=== PATIENT | female | born 1995 ===

== ENCOUNTER 2017-01-19 16:31 | Emergency (ER) | payer MEDICAID ==
--- NOTE | ~2017-01-19 | ER ---
PATIENT'S NAME: NANDINI BERNALERA [facility] AGE: 21 Y [address] ROOM: [place] [id number] LOCATION: [facility] ADMIT DATE: 01/19/2017 ER/Outpatient Report DISCHARGE DATE: 01/19/2017 FAMILY PHYSICIAN: Jareth Real MD ATTENDING PHYSICIAN: Carlos Manuel Sandra Time of Arrival: 1631 hours. Time of Evaluation: 1645 hours. CHIEF COMPLAINT: Migraine headache. HISTORY OF PRESENT ILLNESS: This is a 21-year-old female, who presents to the ER. She states she has been having a migraine for the past couple of hours. She states she does have a history of migraines. It is similar to her previous headaches and is located on the left side of her head. It makes her feel photophobic. She has had nausea and vomiting and just feels neck discomfort because of it. She has had no recent illness. No fever or chills. She did take some ibuprofen prior to arrival with no relief of her symptoms. ALLERGIES: PLEASE SEE MEDICATION LIST IN NURSE'S NOTES. MEDICATIONS: Please see medication list in nurse's notes. PAST MEDICAL HISTORY: Asthma, migraines, allergies. PAST SURGICAL HISTORY: None. SOCIAL HISTORY: Denies smoking, drug, or alcohol use. REVIEW OF SYSTEMS: A 10-point review of systems was completed and was negative with the exception of those discussed in the HPI. PHYSICAL EXAMINATION: VITAL SIGNS: Weight 59 kg taken, blood pressure is 112/67, pulse 82, respirations 20, saturations 98% on room air. Ryan Coma Score is 15. GENERAL: An alert, calm, well-developed female, in [id number]-rc-stptopsy distress. She is in a dark room with a towel over her face. [facility] 21 Y [address] ROOM: [place], [place] [id number] LOCATION: [facility] ADMIT DATE: 01/19/2017 ER/Outpatient Report DISCHARGE DATE: 01/19/2017 FAMILY PHYSICIAN: Jareth Real MD ATTENDING PHYSICIAN: Carlos Manuel Sandra HEENT: Head: Normocephalic. Eyes: Pupils are equal and reactive to light. Ears: TMs display good light reflexes bilaterally. Throat: No exudates or erythema. She does display moist mucous membranes. NECK: Supple. No lymphadenopathy. She has no nuchal rigidity. LUNGS: Clear to auscultation bilaterally. No wheezes or crackles. HEART: Regular rate and rhythm. EXTREMITIES: No clubbing or cyanosis. She has full range of motion of all limbs. SKIN: Warm, dry, and intact. LABORATORY DATA AND X-RAYS: None were done. IMPRESSION: Migraine headache. ASSESSMENT AND PLAN: We did start an IV and did give her a liter of IV fluids along with 25 mg of Benadryl and 10 mg of Compazine. This did improve her headache. She would like to go home at this time. We advised her to continue to push fluids and rest. Monitor her symptoms and follow up with her primary care physician as needed. The patient understands and agree with care. TAYLOR SOTO PA-C FOR MD SG GUALLPA/richelle /[id number] d: 01/19/17 2329 t: 01/27/17 0922, OUTPATIENT REPORT
[~2017-01-19 16:31] MED LIST: ACETAMINOPHEN325 MG PO; DERMOPLAST SPRA56 GM TOP; FEOSOL325 MG PO; FLOVENT 220 M220 MCG INH; LANSINOH7 GM TOP; MOTRIN800 MG PO; PRENATAL 1+1)(P1 TAB PO; ZOFRAN4 MG PO
== END 2017-01-19 18:00 | disposition disaster alternative care site (69) ==
LOC: GMED 16:31
DX: G43.909 Migraine, unspecified, not intractable, without status migrainosus (principal); J45.909 Unspecified asthma, uncomplicated; Z88.8 Allergy status to other drugs, medicaments and biological substances
CPT/HCPCS: J0780; J1200; J7030